=== PATIENT | male | born 1980 | race Two or more races ===

== ENCOUNTER 2018-04-23 02:05 | Emergency (ER) | payer OTHER ==
[~2018-04-23] VITALS: Ht 172.7 cm; Wt 68.0 kg
[2018-04-23] MEDS ORDERED: XANAX0.25 MG (02:18)
== END 2018-04-23 06:53 | disposition home or self-care (01) ==
LOC: ER 02:05
DX: T18.198A Other foreign object in esophagus causing other injury, initial encounter (principal); W45.8XXA Other foreign body or object entering through skin, initial encounter; Y93.89 Activity, other specified; Y92.89 Other specified places as the place of occurrence of the external cause; Y99.8 Other external cause status